=== PATIENT | female | born 1965 | race Caucasian/White ===

== ENCOUNTER → 2019-06-08 | Day surgery (SDC) | payer OTHER ==
[2019-06-05 17:00] VITALS: BMI 28.0
[~2019-06-08] MED LIST: GLYCOPYRROLATE 0.2 MG/ML 2 ML VIAL ONE; LACTATED RINGERS 1,000 ML IV SCH; LIDOCAINE 1% 20 ML VIAL (10MG/ML) FOR IV START INTRADERMA PRN; LIDOCAINE 1% INJ 10MG/ML (20 ML MDV) ONE; PROPOFOL 10 MG/ML 20 ML VIAL IV ONE
[2019-06-08 09:10] VITALS: TEMP 97.2
--- NOTE | 2019-06-08 10:51 | P.PCN ---
Date of Procedure: 06/08/19 Procedure(s) Performed: Brief history: Patient is a pleasant 54-year-old white female, scheduled for an elective upper endoscopy as well as colonoscopy as a part of evaluation of GERD/intermittent dysphagia to solids and screening for colon cancer. She is been having dysphagia to solids and occasionally with liquids for the last 6 months duration. She was diagnosed with esophageal achalasia and is status post esophageal myotomy in 1989 at [facility]. Last upper endoscopy with Dr. Holden was in April 2011. In view of was 6 and she is scheduled for an upper endoscopy with possible dilation. Procedure performed: Esophagogastroduodenoscopy with biopsy Colonoscopy Preoperative diagnosis: Intermittent dysphagia to solids Weight loss Screening for colon cancer Anesthesia: MAC Procedure: After informed consent was obtained from the patient was brought into the endoscopy unit and IV sedation was administered by anesthesia under continuous monitoring. Initially upper endoscopy was done. The Olympus GF 160 video endoscope was inserted inserted into the mouth and esophagus intubated without any difficulty and was gradually advanced into the stomach and duodenum and carefully examined. The bulb and second part of the duodenum appeared normal. The scope was then withdrawn into the stomach adequately insufflated with air and upon careful examination the antrum and body, appeared normal. There were multiple small gastric polyps noted in the body of the stomach which were bio psied. The cardia and fundus appeared normal. The scope was then withdrawn into the esophagus. The GE junction was located at 38 cm to the incisors. It appeared regular with no erythema erosions or ulcerations. Rest of the esophagus appeared normal. There was no evidence of esophageal stricture. Biopsies were done from the distal esophagus. Patient tolerated the procedure well. At this time the patient continued to remain sedation. Initial digital rectal examination was normal. Olympus CF 160 video colonoscope was then inserted into the rectum and gradually advanced to the cecum without any difficulty. Careful examination was performed as the scope was gradually being withdrawn. The prep was excellent. The cecum, ascending colon, transverse colon, descending colon, sigmoid colon and rectum appeared normal. Retroflexion was performed in the rectum and no lesions were noted. Patient tolerated the procedure well. Impression: 1. Upper endoscopy revealed multiple small gastric polyps but no evidence of esophagitis or peptic ulcer disease. No evidence of esophageal stricture 2. Colonoscopy was within normal limits with no evidence of colitis or colorectal neoplasia Recommendations: Findings of this examination were discussed with the patient as well as her family. She was advised to follow with the biopsy results. She will be given a trial of Prilosec 20 mg daily for 4 weeks and will be seen back in office. She can have a repeat screening colonoscopy in 10 years.
[2019-06-08 10:54] VITALS: PULSE 72; RESP 17
[2019-06-08 11:02] VITALS: BP 131/61
== END | disposition home or self-care (01) ==
LOC: ORWHC2ENDO 08:59
PROVIDERS: ATTEND Internal Medicine Gastroenterology
DX: Z12.11 Encounter for screening for malignant neoplasm of colon (principal); R63.4 Abnormal weight loss; K31.7 Polyp of stomach and duodenum; K21.9 Gastro-esophageal reflux disease without esophagitis; F17.200 Nicotine dependence, unspecified, uncomplicated; Z88.5 Allergy status to narcotic agent; Z91.040 Latex allergy status; Z79.899 Other long term (current) drug therapy
CPT/HCPCS: 88305; 43239; J2001; J2704; G0121

== ENCOUNTER 2021-03-05 11:25 | Day surgery (SDC) | payer MEDICARE, OTHER ==
[2021-03-02 16:01] VITALS: BMI 23.9
[~2021-03-05 11:25] MED LIST changes: -GLYCOPYRROLATE 0.2 MG/ML 2 ML VIAL ONE; +LIDOCAINE 1% (10MG/ML) FOR IV START INTRADERMA PRN; -LIDOCAINE 1% 20 ML VIAL (10MG/ML) FOR IV START INTRADERMA PRN; -LIDOCAINE 1% INJ 10MG/ML (20 ML MDV) ONE; -PROPOFOL 10 MG/ML 20 ML VIAL IV ONE
[2021-03-05 11:54] VITALS: TEMP 97.5
[2021-03-05] MEDS ORDERED: PROPOFOL 10 MG/ML 20 ML VIAL IV ONE (12:47)
[2021-03-05] MEDS ORDERED: LIDOCAINE 1% INJ 10MG/ML (20 ML MDV) ONE (12:47)
--- NOTE | 2021-03-05 12:58 | P.PCN ---
Date of Procedure: 03/05/21 Procedure(s) Performed: BRIEF HISTORY: Patient is a 56-year-old, pleasant, white female scheduled for an upper endoscopy as a part of evaluation of progressive weight loss of almost 30 pounds in the last 1 year duration. He had colonoscopy in May 2020 rectum was normal. She has prior history of esophageal achalasia diagnosed in 1989 status post Heller's myotomy at her last EGD in May 2019 showed no esophageal stricture. She is scheduled for an upper endoscopy to evaluate further and rule out upper GI pathology.. PROCEDURE PERFORMED: Esophagogastroduodenoscopy with biopsy. PREOPERATIVE DIAGNOSIS: Progressive weight loss of 40 pounds in the last 1 year duration. History of esophageal achalasia. IV sedation per anesthesia. PROCEDURE: After informed consent was obtained, the patient was brought into the endoscopy unit. IV sedation was administered by Anesthesia under continuous monitoring. Initially the Olympus GIF-140 video endoscope was inserted into the mouth. Esophagus intubated without any difficulty. It was gradually advanced into the stomach and duodenum and carefully examined. The bulb and the second part of the duodenum appeared normal. His were done from the duodenum to rule out celiac disease. The scope at this time was withdrawn to the stomach, adequately insufflated with air, and upon careful examination, mucosa of the antrum, mild gastritis and biopsies were done from this area. The body, cardia and the fundus appeared normal. The scope was then withdrawn into the esophagus. The GE junction was located at 44 cm from the incisors. The esophagus appeared normal. It appeared slightly dilated but there was no evidence of esophagitis or esophageal stricture. There were no erosions or ulcerations seen and the patient tolerated the procedure well. IMPRESSION: 1. Dilated esophagus but no evidence of esophageal stricture. 2. Antral gastritis. RECOMMENDATIONS: The findings of this examination were discussed with the patient is well as her family. She was advised to follow with the biopsy results. She will be seen in office in 3-4 weeks.
[2021-03-05 13:16] VITALS: PULSE 81; RESP 16
[2021-03-05 13:43] VITALS: BP 175/95
== END 2021-03-05 13:46 | disposition home or self-care (01) ==
LOC: ORWHC2ENDO 11:25
PROVIDERS: ATTEND Internal Medicine Gastroenterology
DX: K29.50 Unspecified chronic gastritis without bleeding (principal); K22.8 Other specified diseases of esophagus; K21.9 Gastro-esophageal reflux disease without esophagitis; R63.4 Abnormal weight loss; Z88.5 Allergy status to narcotic agent; Z91.040 Latex allergy status; Z79.899 Other long term (current) drug therapy
CPT/HCPCS: 88305; 43239; J2001; J2704